=== PATIENT | male | born 1965 | race Caucasian/White ===

== ENCOUNTER 2021-05-31 21:51 | Inpatient (IN) | payer BC ==
[~2021-05-31] VITALS: Ht 175.3 cm; Wt 93.6 kg
[2021-06-01 01:51] LABS: HEMOGLOBIN 13.5 gm/dl (14.0-17.5); WHITE BLOOD COUNT 4.9 K/UL (4.5-11.0)
[2021-06-01 02:34] LABS: BUN/CREATININE RATIO 27 (0-10)
[2021-06-01] MEDS ORDERED: ATORVASTATIN CA40 MG PO (03:09)
[2021-06-01] MEDS ORDERED: LOPRESSOR 50 MG50 MG PO (03:09)
[2021-06-01] MEDS ORDERED: ENTRESTO 24 MG1 EACH PO (03:09)
[2021-06-01 04:23] LABS: BORDETELLA PARAPERTUSSIS Not Detected (Not Detectd); BORDETELLA PERTUSSIS Not Detected (Not Detectd); CHLAMYDIA PNEUMONIAE Not Detected (Not Detectd); CORONAVIRUS HKU1 Not Detected (Not Detectd); CORONAVIRUS NL63 Not Detected (Not Detectd); CORONAVIRUS OC43 Not Detected (Not Detectd); CORONOAVIRUS 229E Not Detected (Not Detectd); HUMAN METAPNEUMOVIRUS Not Detected (Not Detectd); HUMAN RHINOVIRUS/ENTEROVIRUS Not Detected (Not Detectd); INFLUENZA A Not Detected (Not Detectd); INFLUENZA B Not Detected (Not Detectd); MYCOPLASMA PNEUMONIAE Not Detected (Not Detectd); PARAINFLUENZA VIRUS 1 Not Detected (Not Detectd); PARAINFLUENZA VIRUS 2 Not Detected (Not Detectd); PARAINFLUENZA VIRUS 3 Not Detected (Not Detectd); PARAINFLUENZA VIRUS 4 Not Detected (Not Detectd); RESPIRATORY SYNCYTIAL VIRUS Not Detected (Not Detectd)
[2021-06-01 05:28] LABS: SARS-CoV-2 NOT DETECTED (Not Detectd)
[2021-06-02 02:10] LABS: HEMOGLOBIN 12.7 gm/dl (14.0-17.5); RED BLOOD COUNT 3.79 M/UL (4.20-5.50)
[2021-06-02 02:18] LABS: WHITE BLOOD COUNT 7.5 K/UL (4.5-11.0)
[2021-06-03 02:07] LABS: HEMOGLOBIN 12.6 gm/dl (14.0-17.5); RED BLOOD COUNT 3.76 M/UL (4.20-5.50); WHITE BLOOD COUNT 7.8 K/UL (4.5-11.0)
--- NOTE | 2021-06-03 15:20 | NUR ---
@1520 CALLED AND DISCUSSED PICC LINE ORDER WITH RACHELLE OVALLE FOR [address] MIDLINE POWERGLIDE
[2021-06-03 16:15] LABS: HEMATOCRIT 39.8 % (37.5-51.0)
[2021-06-04 01:53] LABS: HEMOGLOBIN 13.3 gm/dl (14.0-17.5); RED BLOOD COUNT 3.98 M/UL (4.20-5.50); WHITE BLOOD COUNT 6.2 K/UL (4.5-11.0)
[2021-06-04 02:29] LABS: BUN/CREATININE RATIO 40 (0-10)
[2021-06-04] MEDS ORDERED: [UNRECOGNIZED DRUG - OTHER] PO (15:56)
[2021-06-04] MEDS ORDERED: OMNICEF 300 MG300 MG PO (15:56)
[2021-06-04] MEDS ORDERED: XOPENEX HFA15 GM INH (15:56)
[2021-06-04] MEDS ORDERED: FUROSEMIDE20 MG PO (15:56)
[2021-06-04] MEDS ORDERED: XARELTO 10 MG T10 MG PO (15:56)
[2021-06-04] MEDS ORDERED: DILTIAZEM 24HR240 M1 PO (15:56)
[2021-06-04] MEDS ORDERED: MEDROL DOSEPAK 24 MG PO (15:56)
[2021-06-04] MEDS ORDERED: FAMOTIDINE20 MG PO (15:56)
== END 2021-06-04 17:20 | disposition home health service (06) | DRG 308 ==
LOC: PROG CARE 23:50
PROVIDERS: Internal Medicine; Registered Nurse; ADMIT Internal Medicine
PROC: B24BZZZ Ultrasonography of Heart with Aorta (ICD-10-PCS; principal; 2021-06-01)
DX: I48.91 Unspecified atrial fibrillation (principal); J18.9 Pneumonia, unspecified organism; I50.43 Acute on chronic combined systolic (congestive) and diastolic (congestive) heart failure; I13.0 Hypertensive heart and chronic kidney disease with heart failure and stage 1 through stage 4 chronic kidney disease, or unspecified chronic kidney disease; Z20.822 Contact with and (suspected) exposure to COVID-19; J44.1 Chronic obstructive pulmonary disease with (acute) exacerbation; N17.9 Acute kidney failure, unspecified; E87.1 Hypo-osmolality and hyponatremia; E83.39 Other disorders of phosphorus metabolism; E88.09 Other disorders of plasma-protein metabolism, not elsewhere classified; I42.9 Cardiomyopathy, unspecified; Z96.698 Presence of other orthopedic joint implants; E87.6 Hypokalemia; E78.5 Hyperlipidemia, unspecified; D69.6 Thrombocytopenia, unspecified; E66.9 Obesity, unspecified; N18.30 Chronic kidney disease, stage 3 unspecified; I25.10 Atherosclerotic heart disease of native coronary artery without angina pectoris; Z95.1 Presence of aortocoronary bypass graft; Z87.891 Personal history of nicotine dependence; Z82.49 Family history of ischemic heart disease and other diseases of the circulatory system; Z99.81 Dependence on supplemental oxygen; I25.2 Old myocardial infarction; Z68.30 Body mass index [BMI] 30.0-30.9, adult
CPT/HCPCS: ECHO; 36415; 71045; 76705; 80048; 80053; 80061; 82550; 82553; 82570; 82607; 82728; 82747; 82803; 83036; 83540; 83550; 83605; 83735; 83880; 83921; 83935; 84100; 84132; 84300; 84439; 84443; 84484; 84550; 85007; 85025; 85027; 85610; 85730; 86140; 87040; 87070; 87205; 87633; 93005; 93306; 94640; 94664; 94760; C1751; J0696; J1160; J1940; J2920; J3475